=== PATIENT | female | born 1965 | race Caucasian/White ===

== ENCOUNTER 2017-01-04 23:44 | Observation (INO) | payer SELFPAY ==
[2017-01-05] MEDS ORDERED: Metoclopramide HCl 10 MG/2 ML VIAL ONE (00:06)
[2017-01-05] MEDS ORDERED: diphenhydrAMINE 50 MG/ML VIAL ONE (00:06)
[2017-01-05] MEDS ORDERED: Ondansetron HCl/PF 4 MG/2 ML Vial ONE (00:41)
[2017-01-05 01:17] LABS: Bilirubin Negative (Negative); Blood, Urine Negative (Negative); Glucose, Urine (Dipstick) Negative (Negative); Ketone, Urine Negative (Negative); Nitrite Negative (Negative); Protein, Urine (Dipstick) Negative (Neg-Trace); Urobilinogen 0.2 mg/dL (0.2-1.0)
[2017-01-05 01:19] LABS: Bacteria/HPF None Seen HPF (None Seen); Hyaline Casts/LPF 0-3 HYALINE CAST LPF (0-3 Hyaline); RBC/HPF None Seen HPF (0-3); Squamous Epithelial None Seen HPF (0-3); WBC/HPF None Seen HPF (0-3)
[2017-01-05 01:27] LABS: Amphetamine Not Detected (NotDetected); Methadone Not Detected (NotDetected); Methamphetamine Not Detected (NotDetected)
[2017-01-05 03:01] LABS: #Lymphocytes 0.9 thou/uL (1.20-3.40); #Monocytes 0.1 thou/uL (0.11-0.59); #Neutrophils 5.4 thou/uL (1.40-6.50); %Basophils 0.3 % (0.0-1.0); %Eosinophils 0.5 % (0.0-10.0); %Lymphocytes 13.8 % (21.0-51.0); %Monocytes 1.2 % (0.0-10.0); Hematocrit 33.3 % (36.0-47.0); Mean Platelet Volume 6.2 fL (7.4-10.4); Red Blood Cell (RBC) Count 3.45 mill/uL (4.20-5.40); White Blood Cell (WBC) Count 6.5 thou/uL (4.8-10.8)
[2017-01-05 03:13] LABS: ALT (SGPT) 15 U/L (8-55); AST (SGOT) 19 U/L (5-34); Alkaline Phosphatase 107 U/L (40-150); Anion Gap 11 mmol/L (10-20); BUN (Urea Nitrogen) 6 mg/dL (7.0-18.7); Bilirubin, Total 0.2 mg/dL (0.2-1.2); Calc. Creatinine Clearance 0 mL/min (70-130); Calcium 9.2 mg/dL (7.8-10.44); Carbon Dioxide 23 mmol/L (22-29); Chloride 109 mmol/L (98-107); Estimated GFR-MDRD Greater than 90; Globulin 2.7 g/dL (2.4-3.5); Protein, Total 6.6 g/dL (6.0-8.3)
[2017-01-05] MEDS ORDERED: Ondansetron HCl/PF 4 MG/2 ML Vial IVP PRN (03:42)
[2017-01-05] MEDS ORDERED: Acetaminophen 325 MG TAB PO PRN (03:42)
[2017-01-05] MEDS ORDERED: Ondansetron ODT 4 MG TAB SL PRN (03:42)
[2017-01-05] MEDS ORDERED: Lactated Ringer's 1,000 ML IV SCH (03:45)
[2017-01-05 04:24] VITALS: BMI 23.7
--- NOTE | 2017-01-05 05:45 | PDOC.EVN ---
Event Note - Event Note Event Note: [id number] h&p dictated 1. TIA 2. HTN 3. Headache plan: see orders
[2017-01-05] MEDS ORDERED: cloNIDine 0.1 MG TAB PO PRN (06:04)
[2017-01-05] MEDS ORDERED: Lorazepam 0.5 MG TAB PO SCH ×2 (06:15→06:30)
[2017-01-05 07:46] VITALS: TEMP 98.6
--- NOTE | 2017-01-05 10:20 | PDOC.PN ---
- Subjective Encounter Start Date: 01/05/17 Encounter Start Time: 09:00 Subjective: has nasal stuffiness and dry cough -: no specific weakness - Objective MAR Reviewed: Yes Vital Signs & Weight: Vital Signs (12 hours) Temp Pulse Resp BP Pulse Ox 01/05/17 07:56 98.6 F 72 18 01/05/17 07:20 98.6 F 72 18 129/73 91 L 01/05/17 04:20 98.2 F 77 16 01/05/17 03:35 98.2 F 77 16 122/69 94 L Weight Weight 138 lb 4.8 oz I&O: 01/04/17 01/05/17 01/06/17 06:59 06:59 06:59 Intake Total 403 Balance 403 Result Diagrams: 01/05/17 02:42 01/05/17 02:42 Phys Exam - Physical Examination HEENT: PERRLA, moist MMs Neck: no JVD, supple Respiratory: no wheezing, no rales Cardiovascular: RRR, no significant murmur Gastrointestinal: soft, non-tender, positive bowel sounds Musculoskeletal: no edema, pulses present Neurological: non-focal, moves all 4 limbs Psychiatric: A&O x 3 Dx/Plan (1) Headache Code(s): R51 - HEADACHE Status: Acute Qualifiers: Headache type: unspecified Headache chronicity pattern: acute headache (2) URI (upper respiratory infection) Code(s): J06.9 - ACUTE UPPER RESPIRATORY INFECTION, UNSPECIFIED Status: Acute Qualifiers: URI type: acute nasopharyngitis (common cold) Qualified Code(s): J00 - Acute nasopharyngitis [common cold] (3) Acute sinusitis Code(s): J01.90 - ACUTE SINUSITIS, UNSPECIFIED Status: Acute Qualifiers: Sinusitis location: unspecified location (4) Marijuana abuse Code(s): F12.10 - CANNABIS ABUSE, UNCOMPLICATED Status: Chronic (5) HTN (hypertension) Code(s): I10 - ESSENTIAL (PRIMARY) HYPERTENSION Status: Chronic Qualifiers: Hypertension type: essential hypertension Qualified Code(s): I10 - Essential (primary) hypertension - Plan oral levaquin with tylenol (not allergic) -: nasal saline drops, alb inhaler -: if MRI is -ve may go home * . Review of Systems - Medications/Allergies Allergies/Adverse Reactions: Allergies Allergy/AdvReac Type Severity Reaction Status Date / Time iodine Allergy Verified 05/16/14 06:52 morphine Allergy Verified 05/16/14 06:52 NSAIDS (Non-Steroidal Allergy Verified 05/16/14 06:53 Anti-Inflamma Penicillins Allergy Verified 05/16/14 06:54 Medications: Current Medications Acetaminophen (Tylenol) 650 mg PO Q4H PRN PRN Reason: Headache/Fever or Pain Stop: 01/05/17 15:00 Clonidine (Catapres) 0.1 mg PO Q6H PRN PRN Reason: SBP GREATER THAN 160 Lactated Ringer's (Lactated Ringer's) 1,000 mls @ 75 mls/hr IV .[id number] CHANTE Stop: 01/05/17 15:00 Last Admin: 01/05/17 03:57 Dose: 1,000 mls Lorazepam (Ativan) 0.5 mg PO WILLCALL CHANTE Stop: 01/05/17 12:00 Last Admin: 01/05/17 09:15 Dose: 0.5 mg Ondansetron HCl (Zofran) 4 mg IVP Q6H PRN PRN Reason: Nausea/Vomiting Stop: 01/05/17 15:00 Ondansetron HCl (Zofran Odt) 4 mg SL Q6H PRN PRN Reason: Nausea/Vomiting Stop: 01/05/17 15:00 Sodium Chloride (Flush - Normal Saline) 10 ml IVF PRN PRN PRN Reason: Saline Flush Stop: 01/05/17 15:00
[2017-01-05] MEDS ORDERED: PROVENTIL INHALER 6.7 G (200 INHALATIONS) INH PRN (10:24)
--- NOTE | 2017-01-05 11:35 | HP ---
DATE OF ADMISSION: 01/05/2017 CHIEF COMPLAINT: Headache. HISTORY OF PRESENT ILLNESS: Patient is a 51 years old female with past medical history of hypertens ion, initially went to outside ER because of the headache and the left upper and lower extremity wea kness. The patient's blood pressure at home was elevated and she has annoying headache. Headache i s dull kind, constant all over the head, associated with nausea and vomiting also, severe headache. Patient went to outside ER. The patient was given Decadron. Following the Decadron, the patient w as on Benadryl. The patient became confused, so patient was transferred here for further evaluation . By the time, the patient came to the ER, the confusion did improve and the patient was given Zofr an for nausea and Tylenol for the headache and the headache did improve in our ER. Denies any pain at this time. Patient says she did have some left upper and lower extremity weakness with the heada cristian, but resolved at this time. Denies any trouble breathing, denies any chest pain, denies any pal pitation, denies dizziness. The patient complains of cough for the past few days, positive for some sputum production. PAST MEDICAL HISTORY: Hypertension. PAST SURGICAL HISTORY: Tonsillectomy, hysterectomy, and hand surgery. SOCIAL HISTORY: Positive for smoking, denies alcohol, denies any drugs. FAMILY HISTORY: Positive for stroke. REVIEW OF SYSTEMS: Constitutional: Denies any fever, denies any chills. Eyes: No vision problems . Ears: Denies any hearing loss. Neck: Denies any neck pain. Cardiovascular System: Denies any chest pain. Respiratory System: Positive for cough. Cranial Nerve System: Denies syncope. Posi tive for headache. Positive for left upper and lower extremity weakness. Integumentary: Denies an y rash. Psychiatric: Denies depression/anxiety. Genitourinary: No any dysuria. All other review of systems is reviewed and is negative. PHYSICAL EXAMINATION: CONSTITUTIONAL/VITAL SIGNS: At the time of H\T\P performed, temperature 98.2, heart rate 77, respir ations 16, blood pressure is 122/69. GENERAL: The patient appears comfortable. HEENT: Anterior nares patent. Nose normal. Ears normal. Teeth intact. Tongue is moist. NECK: Supple. No JVD. CARDIOVASCULAR SYSTEM: S1, S2 present. Regular rate and rhythm. No murmurs, no rubs, no gallops. RESPIRATORY SYSTEM: No wheezing, no rhonchi. Breath sounds present bilaterally. GASTROINTESTINAL: Abdomen is soft, nontender, no guarding, no organomegaly, no masses felt. MUSCULOSKELETAL: No edema. INTEGUMENT: No rashes seen. CRANIAL NERVE SYSTEM: Cranial nerves intact. Speech clear. PSYCHIATRIC: Mood is appropriate at this time. Strength intact. LABORATORY DATA: At the time of H\T\P performed, white count 6.5, hemoglobin 9.3, platelet count 26 8. BMP showed sodium 139, potassium 4, chloride 109, CO2 of 23, BUN of 16.6, AST 19, ALT 15, alkali ne phosphatase 107, serum total protein 6.6. Toxicology is positive for benzos. UA positive for sp ecific gravity 1.003. CT head, no acute disease in the outside ER. ASSESSMENT AND PLAN: The patient is a 51 years old female. 1. Transient ischemic attack. Plan to do MRI brain. Plan to check carotid ultrasound. We will mo nitor the patient closely. 2. History of hypertension plus headache. Headache resolved at this time. Plan to continue blood pressure medications. 3. Pain, p.r.n. pain medications. 4. Nausea, p.r.n. antiemetics. The case was discussed in detail with the patient.
[2017-01-05 11:36] VITALS: BP 140/80
--- NOTE | 2017-01-05 16:06 | DIS ---
DATE OF ADMISSION: 01/05/2017 DATE OF DISCHARGE: 01/05/2017 DISCHARGE DISPOSITION: To home. PRIMARY DISCHARGE DIAGNOSES: Headache with upper respiratory infection, likely viral with sinusitis, marijuana abuse, and hypertension. PROCEDURES DONE DURING HOSPITALIZATION: H and H 11 and 33 and platelet count 268. TSH 2.2. Urine drug screen is positive for benzodiazepines. CT brain done on 01/04/2017 showed no acute intracranial process. Lumbar puncture done on 04/10, shows it to be clear and colorless, white count of 1, RBC 1, had a glucose of 57 and total protein of 35. Her urine drug screen was positive for marijuana on 12/31/2016. DISCHARGE MEDICATIONS: Zoloft 100 mg p.o. daily, buspirone 15 mg p.o. twice daily, carbamazepine 300 mg p.o. twice daily, Mucinex 600 mg p.o. twice daily, Levaquin 500 mg p.o. daily for 6 days, hydrochlorothiazide 12.5 mg p.o. daily, gabapentin 300 mg p.o. twice daily, albuterol inhaler q.6 hourly p.r.n. ALLERGIES: MORPHINE, NSAIDS, IODINE, PENICILLIN. BRIEF COURSE DURING HOSPITALIZATION: Patient initially came in with complaints of headache and had also complained of left upper and lower extremity weakness. The patient has had cough with nasal stuffiness and postnasal discharge as well. She has had an initial lumbar puncture done, which did not reveal any acute abnormality. She has had a CT brain done, which showed no acute intracranial abnormality. The patient was scheduled for MRI brain, but she did not want to do it despite preprocedure Ativan. Likely, her headache is due to upper respiratory infection with sinusitis. She was counseled with regard to cessation of smoking and marijuana. She needs to continue Levaquin, Mucinex, and Tylenol to help with her sinusitis. If her symptoms were to get worse, she is advised to come to the nearest emergency room. She is otherwise hemodynamically stable and neurologically stable. She is ambulating in the room. Please see a [id number] documentation on [facility] for the day of discharge. [facility]
[2017-01-05] MEDS ORDERED: FlunisoLIDE 0.025% Nasal Spray 25 ml Bottle EA NARE SCH (21:00)
== END 2017-01-05 13:19 | disposition home or self-care (01) ==
LOC: ERS 23:44 → 2SE 01-05 02:36
PROVIDERS: ADMIT Internal Medicine; ATTEND Internal Medicine
DX: R51 Headache (principal); J06.9 Acute upper respiratory infection, unspecified; M62.81 Muscle weakness (generalized); I10 Essential (primary) hypertension; F17.210 Nicotine dependence, cigarettes, uncomplicated; F12.10 Cannabis abuse, uncomplicated; Z88.5 Allergy status to narcotic agent; Z88.6 Allergy status to analgesic agent; Z88.0 Allergy status to penicillin; Z91.041 Radiographic dye allergy status; Z90.710 Acquired absence of both cervix and uterus; Z98.890 Other specified postprocedural states
CPT/HCPCS: 36415; 80053; 80306; 81003; 82140; 84443; 85025; 96365; 96375; G0378; G8978-GP-CI; G8979-GP-CH; J1200; J2405; J2765

== ENCOUNTER 2018-01-20 13:49 | Day surgery (SDC) | payer OTHER ==
[2018-01-19 14:43] VITALS: BMI 24.3
[2018-01-20 15:18] LABS: Calc. Creatinine Clearance 109 mL/min (70-130); Estimated GFR-MDRD Greater than 90
[2018-01-20] MEDS ORDERED: Fentanyl 100 MCG/2 ML VIAL ONE ×2 (16:24→16:41)
[2018-01-20] MEDS ORDERED: HYDROcodone/Acetaminophen 5/325 mg Tablet ONE (17:41)
--- NOTE | 2018-01-20 18:21 | MRI ---
MRI OF THE LUMBAR SPINE WITH AND WITHOUT CONTRAST: 01/20/18 HISTORY: Lumbar disc degeneration. COMPARISON: 12/10/01. TECHNIQUE: MRI of the lumbar spine is performed with and without intravenous gadolinium administration. Multiseq uential, multiplanar imaging is performed. FINDINGS: Appropriate T1 narrow signal intensity of the lumbar vertebrae. Lumbar spine vertebral body height is maintained and there is no fracture. There are bilateral pars defects at L5. There is 9 mm of lory listhesis of L5 upon S1. On the postcontrast images, no abnormal enhancement of the vertebral bodies. No abnormal enhancement within the thecal sac including the cauda equina and the conus medullaris. Conus medullaris terminates at the mid T12 level. Symmetric signal intensity of the psoas muscles and visualized solid organs. T11-T12 and T12-L1: No significant central canal stenosis or foraminal narrowing. L1-L2: Adequate disc hydration. No significant central canal stenosis. Neural foramina are patent jorge aterally. L2-L3: Minimal desiccation and minimal loss of disc space height. There is a T2 and STIR hyperintensi ty lesion with associated enhancement involving the posterior and midline and subarticular aspect of the disc space compatible with an annular fissure. Annular fissure abuts the traversing right L3 nerv e root. Disc material abuts the traversing left L3 nerve root. Overall, no significant central canal stenosis. Neural foramina are patent bilaterally. L3-L4: Adequate disc hydration. No significant central canal stenosis. Right neural foramen is mild t o moderately narrowed. Moderate left foraminal narrowing. Trace amount of fluid in both facet joints. L4-L5: Adequate disc hydration. No significant central canal stenosis. Neural foramina are patent. L5-S1: Severe loss of disc space height. No significant central canal stenosis. Moderate to severe ri ght and left foraminal narrowing. IMPRESSION: 1. 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 2. Bilateral pars defects (spondylolysis) with associated spondylolisthesis at L5-S1. No signifi cant central canal stenosis. There is moderate to severe bilateral foraminal narrowing. POS: [facility]
== END 2018-01-20 18:37 | disposition home or self-care (01) ==
LOC: SDC/OP 13:49
PROVIDERS: ATTEND Student in an Organized Health Care Education/Training Program
DX: M51.36 Other intervertebral disc degeneration, lumbar region (principal); M43.17 Spondylolisthesis, lumbosacral region; Z79.899 Other long term (current) drug therapy; Z88.0 Allergy status to penicillin; Z88.6 Allergy status to analgesic agent; Z88.5 Allergy status to narcotic agent; Z91.041 Radiographic dye allergy status
CPT/HCPCS: 36415; 72158; 82565; 96374; J3010

== ENCOUNTER 2021-02-14 12:42 | Outpatient (CLI) | payer BC | END 2021-02-14 12:43 | disposition home or self-care (01) | LOC: TBSIIMAG 12:42 | PROVIDERS: ATTEND Neurological Surgery | DX: M47.22 Other spondylosis with radiculopathy, cervical region (principal) | CPT/HCPCS: 72040 ==